=== PATIENT | female | born 1980 | race Caucasian/White ===

== ENCOUNTER 2023-08-20 12:27 | Emergency (ER) | payer OTHER ==
[~2023-08-20 12:27] MED LIST: Iopamidol-370 76% 500 ML MDV (1 ML CHARGE) ONE
[2023-08-20] MEDS ORDERED: Ondansetron PF 4 MG/2 ML Vial ONE ×2 (12:42→14:32)
[2023-08-20] MEDS ORDERED: Morphine 4 MG/ML VIAL ONE ×2 (12:42→14:32)
[2023-08-20 13:11] LABS: #Basophils 0.09 10x3/uL (0.0-0.2); %Eosinophils 2.1 % (0.0-10.0); %Lymphocytes 20.6 % (21.0-51.0); %Monocytes 6.9 % (0.0-10.0); Hematocrit 36.4 % (36.0-47.0); Hemoglobin 11.6 g/dL (12.0-16.0); Mean Corpuscular HGB CONC 31.9 g/dL (32.0-36.0); Mean Corpuscular Hemoglobin 24.9 pg (27.0-31.0); Mean Corpuscular Volume 78.3 fL (78.0-98.0); Mean Platelet Volume 9.7 fL (7.4-10.4); Platelet Count 332 10x3/uL (130-400); RBC Distribution Width 15.4 % (11.5-14.5); Red Blood Cell (RBC) Count 4.65 mill/uL (4.20-5.40)
[2023-08-20 13:24] LABS: BHCG - Serum Negative (NEGATIVE); Pregs Control Background? CLEAR/WHITE (CLR/WHITE); Pregs Control Bar Appear? YES (CONTROL BAR)
[2023-08-20 13:28] LABS: Acetaminophen Less than 10 mcg/mL (10.0-30.0); Alcohol Less than 10.0 mg/dL (Less than 10); Salicylate Less than 8.0 mg/dL (15.0-30.0)
[2023-08-20] MEDS ORDERED: Lidocaine 1% PF 5 ML VIAL ONE ×2 (13:28→13:37)
[2023-08-20] MEDS ORDERED: Lidocaine 1% w/Epinephrine 1:100K 20 ML VIAL ONE ×2 (13:28→14:18)
[2023-08-20 13:38] LABS: ALT (SGPT) 25 U/L (8-55); AST (SGOT) 29 U/L (5-34); Albumin 3.9 g/dL (3.5-5.0); Alkaline Phosphatase 56 U/L (40-110); Anion Gap 12 mmol/L (10-20); BUN (Urea Nitrogen) 13 mg/dL (7.0-18.7); Bilirubin, Total 0.5 mg/dL (0.2-1.2); Calc. Creatinine Clearance 0 mL/min (70-130); Calcium 9.5 mg/dL (7.8-10.44); Carbon Dioxide 25 mmol/L (22-29); Chloride 107 mmol/L (98-107); Estimated GFR 85; Globulin 3.3 g/dL (2.4-3.5); Glucose 89 mg/dL (70-105); Potassium 3.8 mmol/L (3.5-5.1); Protein, Total 7.2 g/dL (6.0-8.3); Sodium 140 mmol/L (136-145)
[2023-08-20] MEDS ORDERED: Boostrix 0.5 ML (Tdap) VIAL (>/=7 yrs of age) ONE (13:55)
[2023-08-20] MEDS ORDERED: Lidocaine 1% (PF) 30 ML VIAL ONE (14:33)
[2023-08-20] MEDS ORDERED: Midazolam HCl 2 mg/2 ml Vial ONE (15:00)
[2023-08-20] MEDS ORDERED: LORazepam 2 MG/ML SYR.(CARPUJECT) ONE (15:06)
== END 2023-08-20 17:12 | disposition home or self-care (01) ==
LOC: ERS 12:27
DX: S01.81XA Laceration without foreign body of other part of head, initial encounter (principal); Z55.6 Problems related to health literacy; Z23 Encounter for immunization; V69.60XA Unspecified occupant of heavy transport vehicle injured in collision with unspecified motor vehicles in traffic accident, initial encounter
CPT/HCPCS: 40650; 70450; 70486; 71260; 72125; 74177; 80053; 80307; 83605; 84703; 85025; 90471; 90715; 93005; 96361; 96374; 96375; 96376; G0390; J2001; J2060; J2250; J2270; J2405; Q9967